=== PATIENT | female | born 1935 | race Caucasian/White ===

== ENCOUNTER → 2017-06-19 | Outpatient (CLI) | payer MEDICARE, BC ==
--- NOTE | 2017-06-24 08:33 | MAM ---
EXAM DESCRIPTION: 3D Screening BILATERAL : Digital Mammography. CLINICAL HISTORY: 81 years Female SCREENING no complaints. No family history of breast cancer. Postmenopausal. No HRT. COMPARISON: 2-D digital screening bilateral studies 06/18/2016 and 06/21/2013.. Reports from prior examinations also reviewed. TECHNIQUE: Bilateral CC and MLO projection full-field images, 3-D tomosynthesis digital mammographic technique. Also bilateral synthesized CC/ MLO full-field images. CAD not utilized. FINDINGS: The breast parenchymal density pattern is: Scattered areas of fibroglandular density. No skin thickening or nipple retraction bilateral solitary microcalcifications. Axillary and intramammary lymph nodes. Skin markers indicating skin moles bilaterally. No focal, stellate mass or density, focal asymmetry , and no suspicious microcalcifications bilaterally. Stable mammograms compared to prior studies, taking into account differences in mammographic technique IMPRESSION: BI-RADS CATEGORY: 2 - BENIGN FINDINGS. FOLLOW UP: Routine digital bilateral screening, one year interval from June 2017. Written communication explaining the IMPRESSION and follow-up, will be mailed to the patient and referring health care provider. According to the [employer], yearly mammograms are recommended starting at age 40 and continuing as long as a woman is in good health. Any breast change noted on a breast self-exam should be reported promptly to the patient's healthcare provider. Breast MRI is recommended for women with an approximately 20-25% or greater lifetime risk of breast cancer, including women with a strong family history of breast or ovarian cancer and women who have been treated for Hodgkin's disease. A negative mammographic report should not delay tissue diagnosis in patients with significant clinical history or physical findings. Extremely dense breast tissue limits the sensitivity of digital mammography. Electronically signed by: Babar Gruber MD 06/24/2017 8:32 AM CDT
== END | disposition home or self-care (01) ==
LOC: MAMMO 09:34
PROVIDERS: ATTEND Family Medicine
DX: Z12.31 Encounter for screening mammogram for malignant neoplasm of breast (principal)
CPT/HCPCS: 77063; G0202

== ENCOUNTER → 2019-03-18 | Outpatient (CLI) | payer MEDICARE, BC ==
--- NOTE | 2019-03-18 09:01 | RAD ---
EXAM DESCRIPTION: Pelvis CLINICAL HISTORY: 83 years Female, M25.562,M25.552 COMPARISON: None. FINDINGS: Single AP view the pelvis shows no displaced pelvic fracture. No hip joint space narrowing. The sacroiliac joints are well-maintained. Mild degenerative disc disease at L3-4. Pelvic phleboliths. IMPRESSION: Degenerative changes in the lower lumbar spine without additional pelvic abnormality. Electronically signed by: Bebeto Og MD 03/18/2019 8:59 AM CDT
--- NOTE | 2019-03-18 09:02 | RAD ---
PROVIDED CLINICAL HISTORY/REASON FOR EXAM: M25.562,M25.552 Findings: Number of images: 4 Location: Left knee No acute fracture or dislocation. Joint spaces are maintained. No significant joint effusion. Patellar enthesophyte. IMPRESSION: No evidence of acute process in the left knee. Electronically signed by: Yassine Patel MD 03/18/2019 8:59 AM CDT
== END ==
LOC: RAD 08:33
PROVIDERS: ATTEND Orthopaedic Surgery
DX: M25.562 Pain in left knee (principal); M47.896 Other spondylosis, lumbar region

== ENCOUNTER 2019-03-20 20:18 | Emergency (ER) | payer MEDICARE, BC ==
[2019-03-20 21:04] VITALS: TEMP 97.3
--- NOTE | 2019-03-20 21:39 | RAD ---
EXAM: Chest,2 Views CLINICAL INDICATION: Altered mental status COMPARISON: There is no previous study for comparison. FINDINGS: Two views of the chest were obtained. Atherosclerotic calcifications are noted involving the aorta. The heart size is normal. The pulmonary vascularity is unremarkable. The lungs are clear. There is no consolidation, infiltrate, pleural effusion, or pneumothorax. IMPRESSION: No evidence of active pulmonary disease. Electronically signed by: Kian Mo MD 03/20/2019 9:37 PM CDT
--- NOTE | 2019-03-20 21:40 | CT ---
EXAM: CT Head CLINICAL INDICATION: Altered mental status COMPARISON: There is no previous study for comparison. TECHNIQUE: The CT scan was done using contiguous axial 2.5 mm sections through the brain. This exam was performed according to our departmental dose-optimization program, which includes automated exposure control, adjustment of the mA and/or kV according to patient size and/or use of iterative reconstruction technique. FINDINGS: There is no midline shift, mass effect, or extraaxial fluid collection. There is no evidence of acute intracranial hemorrhage, mass lesion, or cerebral edema. Moderate diffuse cerebral atrophy is identified. Bone window images reveal no evidence of a skull fracture. IMPRESSION: No evidence of an acute intracranial process. Electronically signed by: Kian Mo MD 03/20/2019 9:38 PM CDT
--- NOTE | 2019-03-20 22:31 | ED.PDOC ---
History of Present Illness - General Chief Complaint: Neuro Symptoms/Deficits Stated Complaint: altered mental status at night Time Seen by Provider: 03/20/19 20:55 Source: patient Exam Limitations: no limitations - History of Present Illness Initial Comments: the patient is an 83-year-old female presenting to the emergency room secondary to mild confusion. The patient showed up here to the hospital to see Dr. Jaimes who is the orthopedist. She actually apparently had an appointment with him last week but thought it was today. This is a Friday and nighttime. She does know where she is. She does know where she lives. She does know actually what day of the month that is and what year it is. She is pleasant and cooperative. She is uncertain how long ago her . She does look well-kept. Her purse is in order. She is in contact with her sons. Apparently she's been having increasing problems with memory over the last couple of months according to her son. No evidence of any acute trauma. She is not complaining of anything. She is very cooperative and very informative. She remembers distant things quite well but recent thing she has a harder time remembering. She does admit to having somerecent memory difficulties. Timing/Duration: unsure Severity: mild Improving Factors: nothing Worsening Factors: nothing Associated Symptoms: denies symptoms Allergies/Adverse Reactions: Allergies Codeine Allergy (Verified 05/07/15 01:26) Home Medications: Ambulatory Orders Aspirin [Baby Aspirin] 81 mg PO QD 05/07/15 Ondansetron [Zofran Odt] 4 mg PO BID PRN #7 tab 05/07/15 Simvastatin [Zocor] 40 mg PO DAILY 05/07/15 Review of Systems - Review of Systems Constitutional: States: no symptoms reported EENTM: States: no symptoms reported Respiratory: States: no symptoms reported Cardiology: States: no symptoms reported Gastrointestinal/Abdominal: States: no symptoms reported Genitourinary: States: no symptoms reported Musculoskeletal: States: no symptoms reported Skin: States: no symptoms reported Neurological: States: see HPI Endocrine: States: no symptoms reported All other Systems: No Change from Baseline Past Medical History (General) - Patient Medical History Hx Seizures: No Hx Stroke: No Hx Dementia: No Hx Asthma: No Hx of COPD: No Hx Cardiac Disorders: No Hx Congestive Heart Failure: No Hx Pacemaker: No Hx Hypertension: No Hx Thyroid Disease: No Hx Diabetes: No Hx Gastroesophageal Reflux: No Hx Renal Disease: No Hx Cancer: No Hx of HIV: No Hx Hepatitis C: No Hx MRSA: No Surgical History: other - Vaccination History Hx Tetanus, Diphtheria Vaccination: Yes Hx Influenza Vaccination: Yes Hx Pneumococcal Vaccination: No - Social History Hx Tobacco Use: No Family Medical History - Family History Mother Family History: Unknown Living Status: Physical Exam - Physical Exam General Appearance: Alert, Comfortable, No apparent distress Eye Exam: bilateral normal Ears, Nose, Throat: hearing grossly normal, normal ENT inspection, normal pharynx Neck: full range of motion, supple Respiratory: lungs clear, normal breath sounds, no respiratory distress, no accessory muscle use Cardiovascular/Chest: normal peripheral pulses, regular rate, rhythm, no edema Peripheral Pulses: radial,right: 2+, radial,left: 2+, dorsalis pedis,right: 2+, dorsalis pedis,left: 2+ Gastrointestinal/Abdominal: non tender, soft Rectal Exam: deferred Back Exam: no CVA tenderness, no vertebral tenderness Extremity: normal range of motion, non-tender, normal inspection, no pedal edema, normal capillary refill 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 Skin Exam: normal color Comments: Vital Signs - 8 hr 03/20/19 20:25 Temperature 97.3 F L Pulse Rate [ 80 monitor] Respiratory 20 Rate Blood Pressure 184/73 [Left Arm] O2 Sat by Pulse 99 Oximetry Progress - Progress Progress: 03/20/19 22:32 the patient's an 83-year-old female presenting to emergency room secondary to some confusion. After talking with the patient and seeing the res ults of the workup I believe that this is simply progressive dementia. She needs to follow back up with her primary care doctor in the coming week or 2. Her son has been informed and he is planning to be back in town more morning. We have found no evidence of any other acute pathology to explain a confused state. The patient is in no acute distress. The patient will be followed back to her home tonight to make sure she gets back home safely. She is obviously been functioning at least fairly well at home up to this point. ER warnings were given for any acute worsening. Laboratory work, CT scan of the head, chest x-ray are reassuring. Departure - Departure Clinical Impression: Dementia Qualifiers: Dementia type: unspecified type Dementia behavioral disturbance: without behavioral disturbance Qualified Code(s): F03.90 - Unspecified dementia without behavioral disturbance Disposition: Discharge to Home or Self Care Condition: Fair Departure Forms: ED Discharge - Pt. Copy, Patient Portal Self Enrollment Instructions: Dementia (DC) Diet: regular diet Activity: increase activity as tolerated Referrals: NAZANIN NEVES [Primary Care Provider] - 1-2 Days Home Medications: Ambulatory Orders Aspirin [Baby Aspirin] 81 mg PO QD 05/07/15 Ondansetron [Zofran Odt] 4 mg PO BID PRN #7 tab 05/07/15 Simvastatin [Zocor] 40 mg PO DAILY 05/07/15 Additional Instructions: the patient's an 83-year-old female presenting to emergency room secondary to some confusion. After talking with the patient and seeing the results of the workup I believe that this is simply progressive dementia. She needs to follow back up with her primary care doctor in the coming week. Her son has been informed and he is planning to be back in town more morning. We have found no evidence of any other acute pathology to explain a confused state. The patient is in no acute distress. The patient will be followed back to her home tonight to make sure she gets back home safely. She is obviously been functioning at least fairly well at home up to this point. ER warnings were given for any acute worsening. Laboratory work, CT scan of the head, chest x- ray are reassuring.
[2019-03-20 22:51] VITALS: BP 168/75; O2SAT 100
== END 2019-03-20 22:53 | disposition home or self-care (01) ==
LOC: ER 20:18
DX: F03.90 Unspecified dementia, unspecified severity, without behavioral disturbance, psychotic disturbance, mood disturbance, and anxiety (principal); Z79.82 Long term (current) use of aspirin; Z88.5 Allergy status to narcotic agent

== ENCOUNTER → 2019-05-06 | Outpatient (CLI) | payer MEDICARE, BC ==
--- NOTE | 2019-05-06 12:25 | RAD ---
PROVIDED CLINICAL HISTORY/REASON FOR EXAM: PAIN IN RIGHT HIP Findings: Number of images: 1 Location: Right hip/pelvis No acute fracture or dislocation. Joint spaces are maintained. Soft tissues are unremarkable. Redemonstrated lower lumbar spondylosis. Pelvic phleboliths. Proximal right thigh soft tissue calcification. IMPRESSION: No evidence of acute process in the right hip. Electronically signed by: Yassine Patel MD 05/06/2019 12:23 PM CDT
== END ==
LOC: RAD 10:16
PROVIDERS: ATTEND Orthopaedic Surgery
DX: M25.552 Pain in left hip (principal); M25.551 Pain in right hip

== ENCOUNTER 2019-11-20 22:32 | Emergency (ER) | payer MEDICARE, BC ==
[2019-11-20] MEDS ORDERED: ONDANSETRON ODT 8 MG TAB SL ONE (22:52)
[2019-11-20] MEDS ORDERED: ALUMINUM & MAGNESIUM HYDROXIDE 30 ML UD PO ONE (22:52)
--- NOTE | 2019-11-20 23:55 | RAD ---
PROCEDURE: XR Acute Abdomen Series CLINICAL HISTORY: 84 years Female vomiting tonight TECHNIQUE: One view of the chest and two views of the abdomen are provided. COMPARISON: No prior exams provided for comparison. FINDINGS: The lungs are hyperinflated and clear without focal consolidation, effusion, or pneumothorax. Aortic atherosclerosis without mediastinal widening or evidence of congestive failure. Nonspecific bowel gas pattern without evidence of obstruction or free air. Suspected dropped gallstones incidentally noted. Pelvic phleboliths. No aggressive osseous lesion. IMPRESSION: Chronic obstructive pulmonary disease. No acute findings in the chest or abdomen. Electronically signed by: Alisia Rivera MD 11/20/2019 11:54 PM CDT
--- NOTE | 2019-11-21 00:35 | ED.PDOC ---
History of Present Illness - General Chief Complaint: Neuro Symptoms/Deficits Stated Complaint: confused Time Seen by Provider: 11/20/19 22:45 Source: patient Exam Limitations: no limitations - History of Present Illness Initial Comments: The patient is a 84-year-old female presented to the emergency room secondary to some mild increased confusion tonight along with 2 or 3 episodes of vomiting according to her. Symptoms started after she took a donepezil, which she had not taken for about 6 months. She is alert and oriented currently. She is pleasant and cooperative. She has not vomited since her arrival. She is tolerating oral intake. No evidence of any pain. No urinary symptoms. No headache. No focal neurological changes. Timing/Duration: 1 hour Severity: mild Improving Factors: nothing Worsening Factors: nothing Associated Symptoms: loss of appetite, malaise, nausea/vomiting Allergies/Adverse Reactions: Allergies Codeine Allergy (Verified 05/07/15 01:26) Home Medications: Ambulatory Orders Aspirin [Baby Aspirin] 81 mg PO QD 05/07/15 Ondansetron [Zofran Odt] 4 mg PO BID PRN #7 tab 05/07/15 Simvastatin [Zocor] 40 mg PO DAILY 05/07/15 Review of Systems - Review of Systems Constitutional: States: no symptoms reported EENTM: States: no symptoms reported Respiratory: States: no symptoms reported Cardiology: States: no symptoms reported Gastrointestinal/Abdominal: States: see HPI Genitourinary: States: no symptoms reported Musculoskeletal: States: no symptoms reported Skin: States: no symptoms reported Neurological: States: see HPI Endocrine: States: no symptoms reported All other Systems: No Change from Baseline Past Medical History (General) - Patient Medical History Hx Seizures: No Hx Stroke: No Hx Dementia: No Hx Asthma: No Hx of COPD: No Hx Cardiac Disorders: No Hx Congestive Heart Failure: No Hx Pacemaker: No Hx Hypertension: No Hx Thyroid Disease: No Hx Diabetes: No Hx Gastroesophageal Reflux: No Hx Renal Disease: No Hx Cancer: No Hx of HIV: No Hx Hepatitis C: No Hx MRSA: No Surgical History: Hysterectomy - Vaccination History Hx Tetanus, Diphtheria Vaccination: No Hx Influenza Vaccination: Yes Hx Pneumococcal Vaccination: Yes - Social History Hx Tobacco Use: No Hx Chewing Tobacco Use: No Hx Alcohol Use: No Hx Substance Use: No Hx Substance Use Treatment: No Hx Depression: No Feels Threatened In Home Enviroment: No Feels Threatened In a Relationship: No Hx Physical Abuse: No Hx Emotional Abuse: No Hx Suspected Abuse: No - Female History Patient is a Female of Child Bearing Age (10 -59 yrs old): No Family Medical History - Family History Mother Family History: Unknown Living Status: Physical Exam - Physical Exam General Appearance: Alert, Comfortable, No apparent distress Eye Exam: bilateral normal Ears, Nose, Throat: hearing grossly normal, normal ENT inspection Neck: full range of motion, supple Respiratory: lungs clear, normal breath sounds, no respiratory distress, no accessory muscle use Cardiovascular/Chest: normal peripheral pulses, no edema, other - Regular rate Peripheral Pulses: radial,right: 2+, radial,left: 2+ Gastrointestinal/Abdominal: non tender, soft Rectal Exam: deferred Back Exam: normal inspection, no CVA tenderness, no vertebral tenderness Extremity: non-tender, normal inspection, no pedal edema, normal capillary refill 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 X- ray and urinalysis are clear. The patient has tolerated oral intake. No further nausea or vomiting. She does need to maintain a bland diet for the next few days. I would discuss resuming the donepezil with the primary care doctor before she does it again. If she does take it again I would recommend her taking it with supper. ER warnings are given. [email or web address] kidd [phone] - Results/Orders Results/Orders: Laboratory Results - last 24 hr 11/21/19 00:02 Urine Color Yellow Urine Appearance Clear Urine pH 7.5 Ur Specific [place] 1.020 Urine Protein Negative Urine Glucose (UA) Negative Urine Ketones 15 H Urine Blood Trace-intact H Urine Nitrite Negative Urine Bilirubin Negative Urine Urobilinogen 0.2 Ur Leukocyte Esterase Negative Urine RBC 0-1 Urine WBC 0 Ur Epithelial Cells 0 Urine Bacteria 0 Acute abdominal series appears benign. - EKG/XRAY/CT CT Ordered: No Departure - Departure Clinical Impression: Sundowning Medication adverse effect Qualifiers: Encounter type: initial encounter Qualified Code(s): T50.905A - Adverse effect of unspecified drugs, medicaments and biological substances, initial encounter Disposition: Discharge to Home or Self Care Condition: Fair Departure Forms: ED Discharge - Pt. Copy, Patient Portal Self Enrollment Instructions: DI for Altered Mental Status Diet: regular diet Activity: increase activity as tolerated Referrals: NAZANIN NEVES [Primary Care Provider] - 1-2 Weeks Home Medications: Ambulatory Orders Aspirin [Baby Aspirin] 81 mg PO QD 05/07/15 Ondansetron [Zofran Odt] 4 mg PO BID PRN #7 tab 05/07/15 Simvastatin [Zocor] 40 mg PO DAILY 05/07/15 Additional Instructions: The patient is an 84-year-old female presenting to the emergency room secondary to some increased confusion tonight most consistent with worsening of sundowning type symptoms likely related to resumption of donepezil tonight. X- ray and urinalysis are clear. The patient has tolerated oral intake. No further nausea or vomiting. She does need to maintain a bland diet for the next few days. I would discuss resuming the donepezil with the primary care doctor before she does it again. If she does take it again I would recommend her taking it with supper. ER warnings are given.
[2019-11-21 00:42] VITALS: BP 151/99; TEMP 97.7; O2SAT 99
== END 2019-11-21 00:43 | disposition home or self-care (01) ==
LOC: ER 22:32
DX: F05 Delirium due to known physiological condition (principal); R41.0 Disorientation, unspecified; T44.1X5A Adverse effect of other parasympathomimetics [cholinergics], initial encounter; R11.10 Vomiting, unspecified; Z88.5 Allergy status to narcotic agent; Z79.899 Other long term (current) drug therapy; Z79.82 Long term (current) use of aspirin

== ENCOUNTER 2019-11-28 08:37 | Emergency (ER) | payer MEDICARE, BC ==
[2019-11-28] MEDS ORDERED: SODIUM CHLORIDE 0.9% (FLUSH) 10 ML SYG IV PRN (08:46)
[2019-11-28] MEDS ORDERED: SODIUM CHLORIDE 0.9% 1000ML 1,000 ML IVS ONE (08:47)
--- NOTE | 2019-11-28 08:49 | ED.PDOC ---
History of Present Illness - General Time Seen by Provider: 11/28/19 08:46 Source: patient, EMS - History of Present Illness Initial Comments: 84 yo female who is bib EMS from home for cc of syncope and fall. Reports has been feeling generally unwell for several days, worsened since yesterday afternoon - reports generalized weakness, fatigue, and a couple episodes of watery diarrhea. At 1 am last night was walking through kitchen and had a syncopal episode - reports fell to the ground with unknown injuries and believes she had LOC for approx 1 hour. Woke up on kitchen floor and was able to stand and ambulate independently. Reports 5/10 pains "all over," but also with lower abdominal pains and pain to her entire neck, both 5/10 severity and constant. No meds taken for relief. Denies any headache, confusion, chest pain, dyspnea, cough, fevers, n/v, urinary sx's, leg swelling. Reports she has been feeling increased stress and anxiety recently over worrying for her 2 sons - one who is in the [place] and another who works on an oil rig. Dr. Padgett in [place] is her PCP. Allergies/Adverse Reactions: Allergies Codeine Allergy (Verified 11/28/19 08:51) Home Medications: Ambulatory Orders Donepezil Hydrochloride [Aricept] 5 mg PO DAILY 11/28/19 Review of Systems - Review of Systems Review of Systems: 11/28/19 08:53 as per HPI All other Systems: Reviewed and Negative Past Medical History (General) - Patient Medical History Hx Seizures: No Hx Stroke: No Hx Dementia: No Hx Asthma: No Hx of COPD: No Hx Cardiac Disorders: No Hx Congestive Heart Failure: No Hx Pacemaker: No Hx Hypertension: No Hx Thyroid Disease: No Hx Diabetes: No Hx Gastroesophageal Reflux: No Hx Renal Disease: No Hx Cancer: No Hx of HIV: No Hx Hepatitis C: No Hx MRSA: No - Vaccination History Hx Tetanus, Diphtheria Vaccination: No Hx Influenza Vaccination: Yes Hx Pneumococcal Vaccination: Yes - Social History Hx Tobacco Use: No Hx Chewing Tobacco Use: No Hx Alcohol Use: No Hx Substance Use: No Hx Substance Use Treatment: No Hx Depression: No Hx Physical Abuse: No Hx Emotional Abuse: No Hx Suspected Abuse: No Family Medical History - Family History Mother Family History: Unknown Living Status: Physical Exam - Physical Exam General Appearance: Alert, Comfortable, No apparent distress Eye Exam: bilateral normal Ears, Nose, Throat: normal ENT inspection, normal pharynx Neck: non-tender, full range of motion, supple, normal inspection Respiratory: chest non-tender, lungs clear, normal breath sounds, no respiratory distress, no accessory muscle use Cardiovascular/Chest: normal peripheral pulses, regular rate, rhythm, no edema, no gallop, no JVD, no murmur Peripheral Pulses: radial,right: 2+, radial,left: 2+ Gastrointestinal/Abdominal: non tender, soft, no organomegaly Back Exam: normal inspection, no CVA tenderness, no vertebral tenderness Extremity: normal range of motion, non-tender, normal inspection, no pedal edema, no calf tenderness, normal capillary refill, pelvis stable Neurologic: baseball glove stuffer II-XII nml as tested, no motor/sensory deficits, alert, normal mood/affect, oriented x 3 Skin Exam: normal color, warm/dry Progress - Progress Progress: 11/28/19 08:54 Syncope -with neck pain & abd pain, also with diarrhea and generally ill -consider c-spine frx, ICH, ACS, flu, UTI, hip frx(s), other -CT Head & c-spine, CXR, pelvis XR, cardiac work-up, labs, UA -1 L NS bolus 11/28/19 11:11 -Pt reports feeling better with rest & IV fluids. Labs largely unremarkable. CT head & c-spine show no acute processes. CXR shows no acute processes per my read. Pelvis XR no acute processes. -Pt remains stable. Suspect likely viral gastroenteritis and mild dehydration contributing to syncopal episode. Likely stress, old age, and other factors contributing as well. Will dc home in good condition, return warnings discussed at length. F/u closely with PCP. Ronald Payne MD Billing #[id number] 11/28/19 08:46 Telemetry .ONCE Sodium Chloride 0.9% (Flush) [Saline Flush Syringe] 10 ml IV PRN PRN 11/28/19 09:00 EKG STAT Pulse Ox Daily Laboratory Results - last 24 hr 11/28/19 11/28/19 11/28/19 09:08 09:08 09:08 WBC 10.0 RBC 4.41 Hgb 13.1 Hct 39.5 MCV 89.6 MCH 29.8 MCHC 33.3 RDW 13.1 Plt Count 166 MPV 9.7 Absolute Neuts (auto) 8.20 H Absolute Lymphs (auto) 1.10 Absolute Monos (auto) 0.70 Absolute Eos (auto) 0.00 Absolute Basos (auto) 0.00 Neutrophils % 81.5 H Lymphocytes % 10.7 L Monocytes % 7.0 Eosinophils % 0.4 L Basophils % 0.4 PT 10.5 INR 1.06 PTT (SP) 21.9 Sodium 136 Potassium 3.7 Chloride 105 Carbon Dioxide 23 Anion Gap 11.7 L BUN 34 H Creatinine 1.04 BUN/Creatinine Ratio 32.7 H Random Glucose 135 H Serum Osmolality 281.6 Calcium 8.7 Total Bilirubin 0.9 AST 25 ALT 15 Alkaline Phosphatase 59 Troponin I B-Natriuretic Peptide 23.2 Serum Total Protein 6.5 Albumin 3.8 Globulin 2.7 Albumin/Globulin Ratio 1.4 Urine Color Urine Appearance Urine pH Ur Specific [place] Urine Protein Urine Glucose (UA) Urine Ketones Urine Blood Urine Nitrite Urine Bilirubin Urine Urobilinogen Ur Leukocyte Esterase Urine RBC Urine WBC Ur Epithelial Cells Urine Bacteria Urine Mucus 11/28/19 11/28/19 09:08 10:41 WBC RBC Hgb Hct MCV MCH MCHC RDW Plt Count MPV Absolute Neuts (auto) Absolute Lymphs (auto) Absolute Monos (auto) Absolute Eos (auto) Absolute Basos (auto) Neutrophils % Lymphocytes % Monocytes % Eosinophils % Basophils % PT INR PTT (SP) Sodium Potassium Chloride Carbon Dioxide Anion Gap BUN Creatinine BUN/Creatinine Ratio Random Glucose Serum Osmolality Calcium Total Bilirubin AST ALT Alkaline Phosphatase Troponin I < 0.02 B-Natriuretic Peptide Serum Total Protein Albumin Globulin Albumin/Globulin Ratio Urine Color Yellow Urine Appearance Clear Urine pH 5.5 Ur Specific [place] >= 1.030 Urine Protein 30 Urine Glucose (UA) Negative Urine Ketones Trace Urine Blood Negative Urine Nitrite Negative Urine Bilirubin Negative Urine Urobilinogen 0.2 Ur Leukocyte Esterase Negative Urine RBC 1-3 Urine WBC 1-3 Ur Epithelial Cells 1-3 Urine Bacteria 1+ Urine Mucus Moderate - EKG/XRAY/CT EKG: Sinus - NSR, HR 75, no ST elevs or q waves, axis & intervals normal, no prior EKG for comparison Departure - Departure Clinical Impression: Gastroenteritis Syncope Qualifiers: Syncope type: unspecified Qualified Code(s): R55 - Syncope and collapse Time of Disposition: 10:44 Disposition: Discharge to Home or Self Care Condition: Good Instructions: DI for Syncope in Adults (Fainting), Viral Gastroenteritis, Adult (DC) Diet: resume usual diet Activity: increase activity as tolerated Referrals: NAZANIN PADGETT [Primary Care Provider] - 1-2 Weeks Home Medications: Ambulatory Orders Donepezil Hydrochloride [Aricept] 5 mg PO DAILY 11/28/19 Additional Instructions: Slowly advance diet and activity level as tolerated. Return if symptoms worsen or other concerning symptoms arise. Follow up closely with your primary care doctor in next 1-2 weeks is advised.
--- NOTE | 2019-11-28 09:40 | CT ---
PROCEDURE: CT Cervical Spine Without Intravenous Contrast CLINICAL INDICATION: The patient is 84 years old and is Female; syncope, fall, neck pain MAIN TECHNIQUE: Axial computed tomography images of the cervical spine without intravenous contrast. Sagittal and coronal reformatted images were created and reviewed. This CT exam was performed using one or more of the following dose reduction techniques: automated exposure control, adjustment of the mA and/or kV according to patient size, and/or use of iterative reconstruction technique. COMPARISON: No relevant prior studies available. FINDINGS: ARTIFACTS: Artifacts from the patient's earrings. VERTEBRAE: No fracture or malalignment identified in the cervical spine. There is multilevel cervical spondylosis and discogenic degenerative change. The lateral masses of C1 are normal with respect to C2. The dens is intact. DISCS/SPINAL CANAL/NEURAL FORAMINA: There is degenerative zygoapophyseal and uncovertebral hypertrophy at multiple levels. OTHER BONES/JOINTS: The visualized skull base is without fracture. SOFT TISSUES: No prevertebral soft tissue hematoma identified. MASTOID AIR CELLS: The inferior mastoid air cells are clear. THYROID: Tiny calcification in the upper pole of the LEFT thyroid gland. LUNG APICES: Tiny subpleural scar or atelectasis in the inferior RIGHT upper lobe. IMPRESSION: No fracture or malalignment identified in the cervical spine. Electronically signed by: Zhen Zaldivar MD 11/28/2019 9:38 AM CDT
--- NOTE | 2019-11-28 09:42 | RAD ---
PROCEDURE: XR Chest, 1 View CLINICAL INDICATION: The patient is 84 years old and is Female; syncope, fall MAIN TECHNIQUE: Frontal view of the chest. COMPARISON: 03/20/2019 FINDINGS: LUNGS: The lungs are clear and free of focal consolidation. PLEURAL SPACE: There is no pneumothorax. There are no pleural effusions noted. HEART: The heart size is normal. MEDIASTINUM: The mediastinal contour is normal. BONES/JOINTS: No acute abnormality noted. VASCULATURE: The aortic knob is calcified. IMPRESSION: No active disease is seen in the chest. Electronically signed by: Zhen Zaldivar MD 11/28/2019 9:41 AM CDT
--- NOTE | 2019-11-28 09:42 | CT ---
PROCEDURE: CT Head Without Intravenous Contrast CLINICAL INDICATION: The patient is 84 years old and is Female; syncope, fall, neck pain MAIN TECHNIQUE: Axial computed tomography images of the head/brain without intravenous contrast. Sagittal and coronal reformatted images were created and reviewed. This CT exam was performed using one or more of the following dose reduction techniques: automated exposure control, adjustment of the mA and/or kV according to patient size, and/or use of iterative reconstruction technique. COMPARISON: Prior CT from 03/20/2019. FINDINGS: ARTIFACTS: There is artifact from the patient's earrings. 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 Early infarcts within the first 12 hours may not be visible on noncontrast CT. The coker/white matter differentiation is intact. NO intra-or extra-axial fluid collections are seen. MIDLINE SHIFT: There is NO midline shift. VENTRICLES: There is mild stable global atrophy with prominence of the ventricles, sulci and basilar cisterns. BONES/JOINTS: Unremarkable. No calvarial fracture. SOFT TISSUES: The soft tissues of the scalp are unremarkable. VASCULATURE: Intracranial vascular calcifications are noted. SINUSES: The visualized paranasal sinuses are clear. MASTOID AIR CELLS: Unremarkable as visualized. No mastoid effusion. ORBITS: There has been bilateral cataract surgery. IMPRESSION: No acute intracranial abnormality is identified. No change. Electronically signed by: Zhen Zaldivar MD 11/28/2019 9:40 AM CDT
--- NOTE | 2019-11-28 09:43 | RAD ---
PROCEDURE: XR Pelvis, 1 or 2 Views CLINICAL INDICATION: The patient is 84 years old and is Female; syncope, ground level fall MAIN TECHNIQUE: Frontal view of the pelvis. COMPARISON: Prior study from 05/06/2019 FINDINGS: BONES/JOINTS: There is NO fracture or dislocation the pelvis. The sacral neural arches are intact. The sacroiliac joints are unremarkable. Both femoral heads are well-seated in their respective acetabula. There are mild degenerative changes in the lower lumbar spine. Bone mineral density is preserved. The pubic symphysis is intact. Stable benign-appearing lesion in the proximal RIGHT femur. SOFT TISSUES: No radiopaque foreign body. No significant soft tissue swelling noted. VASCULATURE: Stable phleboliths in the pelvis. OTHER FINDINGS: The pelvic brim is smooth. IMPRESSION: There is NO fracture or dislocation the pelvis. Electronically signed by: Zhen Zaldivar MD 11/28/2019 9:42 AM CDT
[2019-11-28 11:34] VITALS: BP 151/56; TEMP 97; O2SAT 100
== END 2019-11-28 11:30 | disposition home or self-care (01) ==
LOC: ER 08:37
DX: R55 Syncope and collapse (principal); K52.9 Noninfective gastroenteritis and colitis, unspecified; M54.2 Cervicalgia; R53.1 Weakness; R53.83 Other fatigue; M47.817 Spondylosis without myelopathy or radiculopathy, lumbosacral region; Z88.5 Allergy status to narcotic agent
CPT/HCPCS: 36415; 70450; 71045; 72125; 72170; 80053; 81001; 83880; 84484; 85025; 85610; 85730; 87502; 93005; 94760; J7030

== ENCOUNTER 2020-08-20 02:05 | Emergency (ER) | payer MEDICARE, BC ==
--- NOTE | 2020-08-20 02:12 | ED.PDOC ---
History of Present Illness - General Chief Complaint: Neuro Symptoms/Deficits Stated Complaint: confused Time Seen by Provider: 08/20/20 02:09 Source: patient, RN notes reviewed, EMS Exam Limitations: no limitations - History of Present Illness Initial Comments: The patient is an 84 year old with history of dementia who is brought in by EMS for increased confusion. Per report, she lives alone and this evening she called her son stating that she cannot find her who she was supposed to take care of and she is concerned that he went to another city with a friend this eduardo villagomez. Family states that he has been for many years. They also note that she has been driving alone at night and becoming confused and getting lost. The patient voices no complaints at this time. She is awake, alert and oriented. She is pleasant and well kept. She has had a few visits over the past 18 months for increased episodes of confusion. Allergies/Adverse Reactions: Allergies Codeine Allergy (Verified 11/28/19 08:51) Home Medications: Ambulatory Orders Donepezil Hydrochloride [Aricept] 5 mg PO DAILY 11/28/19 Review of Systems - Review of Systems Constitutional: Denies: chills, fever EENTM: States: no symptoms reported Respiratory: Denies: cough, short of breath Cardiology: Denies: chest pain, palpitations Genitourinary: Denies: dysuria, frequency Skin: States: no symptoms reported Neurological: States: no symptoms reported, see HPI Endocrine: States: no symptoms reported Hematologic/Lymphatic: States: no symptoms reported Past Medical History (General) - Patient Medical History Hx Seizures: No Hx Stroke: No Hx Dementia: No Hx Asthma: No Hx of COPD: No Hx Cardiac Disorders: No Hx Congestive Heart Failure: No Hx Pacemaker: No Hx Hypertension: No Hx Thyroid Disease: No Hx Diabetes: No Hx Gastroesophageal Reflux: No Hx Renal Disease: No Hx Cancer: No Hx of HIV: No Hx Hepatitis C: No Hx MRSA: No - Vaccination History Hx Tetanus, Diphtheria Vaccination: No Hx Influenza Vaccination: Yes Hx Pneumococcal Vaccination: Yes - Social History Hx Tobacco Use: No Hx Chewing Tobacco Use: No Hx Alcohol Use: No Hx Substance Use: No Hx Substance Use Treatment: No Hx Depression: No Hx Physical Abuse: No Hx Emotional Abuse: No Hx Suspected Abuse: No Family Medical History - Family History Mother Family History: Unknown Living Status: Physical Exam - Physical Exam General Appearance: Alert, Comfortable, No apparent distress Ears, Nose, Throat: hearing grossly normal Respiratory: no respiratory distress, no accessory muscle use Cardiovascular/Chest: regular rate, rhythm Gastrointestinal/Abdominal: non tender, soft Extremity: normal range of motion, non-tender, normal inspection, no pedal edema, no calf tenderness Neurologic: no motor/sensory deficits, alert, normal mood/affect, oriented x 3 Progress - Progress Progress: 08/20/20 02:17 Patient presents with episode of confusion at home, she thinks that her left her this afternoon when he has been for many years. She does not have any complaints and is well kept. She has had several ER visits over past 18 months for episodes of confusion and her symptoms are likely secondary to progressively worsening dementia. Will check for UTI and other etiology of possible stressor 08/20/20 02:56 No evidence for infection or other acute process. She is alert and oriented, pleasant. Son at bedside who states that he will take her home. I have provided his contact information to high school social science teacher for community assistance and to help him obtain medical power of county attorney, etc. The patient is not distressed, no SI/HI or indication for OPC. She is caring for herself well and does not appear to be in any danger at this time. She is stable for discharge. I have recommended to her son that he follow up with her primary care physician. - Results/Orders Results/Orders: Laboratory Results - last 24 hr 08/20/20 08/20/20 08/20/20 02:15 02:15 02:20 WBC 7.4 RBC 4.41 Hgb 13.1 Hct 38.4 MCV 86.9 MCH 29.6 MCHC 34.1 RDW 13.0 Plt Count 174 MPV 9.5 Absolute Neuts (auto) 4.90 Absolute Lymphs (auto) 1.80 Absolute Monos (auto) 0.50 Absolute Eos (auto) 0.10 Absolute Basos (auto) 0.10 Neutrophils % 66.2 Lymphocytes % 24.7 Monocytes % 6.8 Eosinophils % 1.6 Basophils % 0.7 Sodium 138 Potassium 3.9 Chloride 101 Carbon Dioxide 25 Anion Gap 15.9 BUN 33 H Creatinine 1.06 BUN/Creatinine Ratio 31.1 H Random Glucose 165 H Serum Osmolality 286.6 Calcium 9.0 Urine Color Yellow Urine Appearance Clear Urine pH 6.0 Ur Specific [place] 1.025 Urine Protein Negative Urine Glucose (UA) Negative Urine Ketones Negative Urine Blood Negative Urine Nitrite Negative Urine Bilirubin Negative Urine Urobilinogen 0.2 Ur Leukocyte Esterase Negative Urine RBC 1-3 Urine WBC 1-3 Ur Epithelial Cells 1-3 Amorphous Sediment Trace Urine Bacteria 1+ Urine Mucus Trace Departure - Departure Clinical Impression: Dementia Qualifiers: Dementia type: Alzheimer's disease Alzheimer's disease onset: unspecified onset Dementia behavioral disturbance: without behavioral disturbance Qualified Code(s): G30.9 - Alzheimer's disease, unspecified; F02.80 - Dementia in other diseases classified elsewhere without behavioral disturbance Time of Disposition: 02:59 Disposition: Discharge to Home or Self Care Condition: Good Departure Forms: ED Discharge - Pt. Copy, Patient Portal Self Enrollment Instructions: Dementia (DC), Tips for Caregivers of People With Alzheimer Disease, Alzheimer Disease (DC) Diet: resume usual diet Activity: increase activity as tolerated Referrals: NAZANIN NEVES [Referring] - 1-2 Weeks Home Medications: Ambulatory Orders Donepezil Hydrochloride [Aricept] 5 mg PO DAILY 11/28/19
[2020-08-20 03:03] VITALS: BP 161/62; O2SAT 99
[2020-08-20 03:16] VITALS: TEMP 97.9
== END 2020-08-20 03:16 | disposition home or self-care (01) ==
LOC: ER 02:05
DX: G30.9 Alzheimer's disease, unspecified (principal); F02.80 Dementia in other diseases classified elsewhere, unspecified severity, without behavioral disturbance, psychotic disturbance, mood disturbance, and anxiety; Z79.899 Other long term (current) drug therapy; Z88.5 Allergy status to narcotic agent